=== PATIENT | male | born 1970 ===

== ENCOUNTER → 2018-02-03 | Outpatient (REF) | payer BC ==
[2018-02-03 15:53] LABS: PLATELET COUNT, AUTOMATED 223 K/uL (150-450)
== END ==
PROVIDERS: ATTEND Family Medicine
DX: R06.00 Dyspnea, unspecified (principal)
CPT/HCPCS: 82040; 82247; 82310; 82374; 82435; 82565; 82947; 84075; 84132; 84155; 84295; 84450; 84460; 84520; 85025; 85379; 86140